=== PATIENT | female | born 1955 ===

== ENCOUNTER 2017-12-30 09:17 | Outpatient (CLI) | payer OTHER ==
[~2017-12-30] VITALS: Ht 160 cm; Wt 68.9 kg
== END 2017-12-30 09:40 | disposition home or self-care (01) ==
LOC: OFIC 805 09:17
DX: H60.311 Diffuse otitis externa, right ear (principal); H92.01 Otalgia, right ear; H90.41 Sensorineural hearing loss, unilateral, right ear, with unrestricted hearing on the contralateral side; H61.21 Impacted cerumen, right ear

== ENCOUNTER 2017-12-30 11:49 | Outpatient (CLI) | payer OTHER | END 2017-12-30 11:55 | disposition home or self-care (01) | LOC: LAB 11:49 | DX: H61.311 Acquired stenosis of right external ear canal secondary to trauma (principal) ==

== ENCOUNTER 2018-01-04 08:50 | Outpatient (CLI) | payer OTHER ==
[~2018-01-04] VITALS: Ht 152.4 cm; Wt 68.9 kg
== END 2018-01-04 09:10 | disposition home or self-care (01) ==
LOC: OFIC 805 08:50
DX: H60.311 Diffuse otitis externa, right ear (principal); H92.01 Otalgia, right ear; H90.41 Sensorineural hearing loss, unilateral, right ear, with unrestricted hearing on the contralateral side; J30.89 Other allergic rhinitis

== ENCOUNTER 2018-05-31 10:32 | Outpatient (CLI) | payer OTHER ==
[~2018-05-31] VITALS: Ht 152.4 cm; Wt 68.9 kg
== END 2018-05-31 10:45 | disposition home or self-care (01) ==
LOC: OFIC 805 10:32
DX: J30.89 Other allergic rhinitis (principal); R09.81 Nasal congestion; J01.80 Other acute sinusitis